=== PATIENT | female | born 1985 | race Caucasian/White ===

== ENCOUNTER 2019-10-24 21:51 | Emergency (ER) | payer MEDICAID ==
[~2019-10-24] VITALS: Ht 167.6 cm; Wt 84.0 kg
--- NOTE | 2019-10-24 22:21 | NUR ---
hemant rn:Pt presents to ed c/o SA tonight. Cut wrist "to end it all.. Im kind of done with everything." States multiple sa attempts, including recent wrist cutting to Other, Left, wrist, and I ate 30 ambien and still woke up the next day. States being seen at [facility] for multiple psychiatric disorders and on medications at home. Roller doors down. Ua sample collected. Sitter in hallway. All belongings in 1 bag and put in locker. Main rn given report.
[2019-10-24] MEDS ORDERED: DIPH,PERTUSS(ACELL),TET VAC/PF 0.5 ML IM-VACC ONE ×2 (22:30→22:31)
[2019-10-24] MEDS ORDERED: LIDOCAINE 1%-EPI 1:100K, 20ML INFIL ONE (22:30)
[2019-10-24] MEDS ORDERED: LIDOCAINE 1%-EPI 1:100K, 20ML ONE (22:31)
[2019-10-24 22:37] LABS: HCG UR SG 1.006 (1.003-1.030)
[2019-10-24 22:38] LABS: BASOPHILS # (AUTO) 0.03 x10^3/uL (0-0.1); BASOPHILS % (AUTO) 0 % (0-1); EOSINOPHILS # (AUTO) 0.12 x10^3/uL (0-0.4); EOSINOPHILS % (AUTO) 1 % (1-7); LYMPHOCYTES % (AUTO) 53 % (22-44); MD NO; MEAN CORPUSCULAR HEMOGLOBIN 32.5 pg (27.0-34.8); MEAN CORPUSCULAR HGB CONC 33.7 g/dL (32.4-35.8); MEAN CORPUSCULAR VOLUME 96.3 fL (80-100); MEAN PLATELET VOLUME 7.3 fL (7.4-10.4); MONOCYTES # (AUTO) 0.68 x10^3/uL (0.2-0.8); MONOCYTES % (AUTO) 8 % (2-9); NEUTROPHILS # (AUTO) 3.32 x10^3/uL (1.8-6.8); NEUTROPHILS % (AUTO) 38 % (42-75); PLATELET COUNT 327 x10^3/uL (130-400)
[2019-10-24 22:50] LABS: AMPHETAMINE SCREEN, URINE Negative (Negative); BARBITURATE SCREEN, URINE Negative (Negative); BENZODIAZEPINE SCREEN, URINE Positive (Negative); CANNABINOID SCREEN, URINE Negative (Negative); COCAINE SCREEN, URINE Negative (Negative); METHADONE SCREEN, URINE Negative (Negative); OPIATE SCREEN, URINE Negative (Negative)
[2019-10-24 22:51] LABS: ALANINE AMINOTRANSFERASE 116 U/L (12-78); ALBUMIN 3.6 g/dL (3.4-5.0); ANION GAP 7 mmol/L (5-15); CALCIUM 7.8 mg/dL (8.5-10.1); CHLORIDE 115 mmol/L (98-107)
[2019-10-24 22:56] LABS: CREATININE 0.81 mg/dL (0.55-1.02)
[2019-10-24 22:57] LABS: ALKALINE PHOSPHATASE 67 U/L (45-117); BILIRUBIN,TOTAL 0.2 mg/dL (0.2-1.0); TOTAL PROTEIN 7.2 g/dL (6.4-8.2)
[2019-10-24 22:59] LABS: SALICYLATE LEVEL < 1.7 mg/dL (2.8-20.0)
--- NOTE | 2019-10-24 23:00 | NUR ---
LACERATION REPAIR IN PROCESS. FAMILY IN WAITING ROOM AWAITING VISITATION. PATIENT IN NO APPARENT DISTRESS AT THIS TIME.
--- NOTE | 2019-10-25 | NUR ---
patient resting in bed with family at bedside. She states her wrist is becoming painful. She is requesting pain medication.
[2019-10-25] MEDS ORDERED: ACETAMINOPHEN 500 MG TABLET ONE (00:40)
--- NOTE | 2019-10-25 00:51 | NUR ---
Patient is hyperventilating. Mom at bedside. patient placed on PaO2 monitor. VSS. Patient was reassured of plan of care.
--- NOTE | 2019-10-25 00:53 | NUR ---
patient's emetrgency contact: Richard Mercer (mother) Please call w updates.
[2019-10-25] MEDS ORDERED: LORazepam 1MG TABLET ONE (00:57)
[2019-10-25] MEDS ORDERED: LORazepam 1MG TABLET PO ONE (01:00)
[2019-10-25] MEDS ORDERED: LORazepam 2 MG/ML, 1ML IVPush ONE (01:00)
[2019-10-25] MEDS ORDERED: ACETAMINOPHEN 500 MG TABLET PO ONE (01:00)
--- NOTE | 2019-10-25 01:00 | NUR ---
PATIENT RESTING IN BED WITH FAMILY AT BEDSIDE. SHE IS CALM AND COOPERATIVE AT THIS TIME.
--- NOTE | 2019-10-25 02:03 | NUR ---
PATIENT RESTING IN BED, EYES CLOSED. SHE WAS CONCERNED THAT 2 OF HER SUTURES BROKE. MD AWARE. SITTER AT BEDSIDE. PATIENT IN NO ACUTE DISTRESS.
--- NOTE | 2019-10-25 03:00 | NUR ---
PATIENT RESTING IN BED, EYES CLOSED. SITTER AT BEDSIDE. PATIENT IN NO ACUTE DISTRESS.
--- NOTE | 2019-10-25 04:12 | NUR ---
PATIENT RESTING IN BED, EYES CLOSED. SITTER AT BEDSIDE. PATIENT IN NO ACUTE DISTRESS.
[2019-10-25] MEDS ORDERED: LIDOCAINE-MPF 1%, 5ML ONE (04:22)
--- NOTE | 2019-10-25 04:39 | NUR ---
Came in to assess patient, waiting for Psychiatrist to call back.
--- NOTE | 2019-10-25 05:00 | NUR ---
PATIENT ASLEEP YET ROUSABLE TO VOICE. SHE IS IN NO APPARENT DISTRESS. SITTER AT BEDSIDE.
--- NOTE | 2019-10-25 05:56 | NUR ---
TP RN: PT PACKED FAXED TO [facility], AND [facility]
--- NOTE | 2019-10-25 06:02 | NUR ---
PATIENT ASLEEP YET ROUSABLE TO VOICE. SHE IS IN NO APPARENT DISTRESS. SITTER AT BEDSIDE
--- NOTE | 2019-10-25 06:57 | NUR ---
GAVE REPORT TO [facility] FOR POTENTIAL TRANSFER.
[2019-10-25 07:26] VITALS: BP 107/68
--- NOTE | 2019-10-25 07:30 | NUR ---
[facility] CALLED FOR UPDATED VITALS ON PT. VITALS TAKEN AND REPORTED TO [facility]. STATED THEY WILL RELAY THEM TO THEIR DOC AND SEE IF DOC WILL ACCEPT PT. PT RESTING CALMLY IN BED AT THIS TIME. SITTER AT DOOR.
--- NOTE | 2019-10-25 08:45 | NUR ---
PT GIVEN MEAL TRAY. STATED HER LEFT WRIST HURTS. ERP AWARE, MEDS ORDERED. SITTER AT DOOR. PT MOTHER REQUESTING PT CALL HER TODAY. PT AWARE. PT INSTRUCTED ON PHONE USE.
[2019-10-25] MEDS ORDERED: IBUPROFEN 600 MG TABLET PO ONE (09:00)
[2019-10-25] MEDS ORDERED: IBUPROFEN 600 MG TABLET ONE (09:29)
--- NOTE | 2019-10-25 09:55 | NUR ---
pt medicated for pain in right wrist. pt resting in bed with eyes closed. no other stated needs at this time.
--- NOTE | 2019-10-25 10:27 | NUR ---
called [facility] as [facility] have an accepting doctor. Spoke with Sam who stated they received report on pt last night and did not need report from this RN at this time. Will continue to monitor.
== END 2019-10-25 10:54 ==
LOC: ED 10-25 01:08
DX: T14.91XA Suicide attempt, initial encounter (principal); S61.511A Laceration without foreign body of right wrist, initial encounter; F32.9 Major depressive disorder, single episode, unspecified; F41.9 Anxiety disorder, unspecified; X78.1XXA Intentional self-harm by knife, initial encounter; Y93.89 Activity, other specified; Y92.89 Other specified places as the place of occurrence of the external cause; Y99.8 Other external cause status
CPT/HCPCS: 12042; 36415; 80053; 80307; 81025; 84703; 85025; 90471; 90715; 99285

== ENCOUNTER 2020-01-05 23:43 | Emergency (ER) | payer MEDICAID ==
[~2020-01-05] VITALS: Ht 170.2 cm; Wt 93.1 kg
--- NOTE | 2020-01-05 23:45 | NUR ---
OVERHEAD LINE WORKER: PT PROVIDED ICE PACK AT THIS TIME.
--- NOTE | 2020-01-06 00:32 | NUR ---
ACCOUNTS ADJUSTABLE CLERK: PT. TO ROOM FROM LOBBY AT THIS TIME.
[2020-01-06] MEDS ORDERED: HYDROcodone/APAP 5/325 TABLET ONE (01:44)
--- NOTE | 2020-01-06 01:50 | NUR ---
SPLINT PLACED. PT MEDICATED FOR PAIN. VSS. PT VERBALIZED UNDERSTANDING OF DISCHARGE AND FOLLOW UP INSTRUCTIONS. PT AMBULATED OUT OF ER WITH A STEADY GAIT.
[2020-01-06 01:51] VITALS: BP 133/82
[2020-01-06] MEDS ORDERED: HYDROcodone/APAP 5/325 TABLET PO ONE (02:00)
== END 2020-01-06 01:54 | disposition home or self-care (01) ==
LOC: ED 01-06 00:38
DX: S62.306A Unspecified fracture of fifth metacarpal bone, right hand, initial encounter for closed fracture (principal); X58.XXXA Exposure to other specified factors, initial encounter; Y93.89 Activity, other specified; Y92.098 Other place in other non-institutional residence as the place of occurrence of the external cause; Y99.8 Other external cause status
CPT/HCPCS: 29125; 99284

== ENCOUNTER 2020-02-07 16:37 | Emergency (ER) | payer MEDICAID ==
[~2020-02-07] VITALS: Ht 167.6 cm; Wt 95.1 kg
[2020-02-07 17:05] VITALS: BP 120/60
[2020-02-07] MEDS ORDERED: LIDOCAINE-MPF 1%, 5ML INFIL ONE (17:30)
[2020-02-07] MEDS ORDERED: LIDOCAINE-MPF 1%, 5ML ONE (19:39)
--- NOTE | 2020-02-07 22:01 | NUR ---
DISCHARGE INSTRUCTIONS EXPLAINED TO PT. PT VERBALIZED UNDERSTANDING. RX GIVEN TO PT. LEFT FINGERS CLEANED, AND BANDAGED. PT AMBULATED TO DISCHARGE DESK WITHOUT INCIDENT
== END 2020-02-07 22:04 | disposition home or self-care (01) ==
LOC: ED 21:44
DX: S61.215A Laceration without foreign body of left ring finger without damage to nail, initial encounter (principal); S61.217A Laceration without foreign body of left little finger without damage to nail, initial encounter; W26.9XXA Contact with unspecified sharp object(s), initial encounter; Y93.89 Activity, other specified; Y92.009 Unspecified place in unspecified non-institutional (private) residence as the place of occurrence of the external cause; Y99.8 Other external cause status
CPT/HCPCS: 12041; 99285

== ENCOUNTER 2020-06-26 07:08 | Day surgery (SDC) | payer MEDICAID ==
[~2020-06-26] VITALS: Ht 167.6 cm; Wt 91.4 kg
[~2020-06-26 07:08] MED LIST: BUPIVACAINE/PF 0.25% ONE; EPINEPHRINE 1 MG/ML, 1ML ONE
[2020-06-26] MEDS ORDERED: CHLORHEXIDINE 15 ML UDC ONE (07:28)
[2020-06-26] MEDS ORDERED: CHLORHEXIDINE 15 ML UDC PO ONE (07:30)
[2020-06-26] MEDS ORDERED: LACTATED RINGERS 1,000 ML IV SCH (07:30)
[2020-06-26 08:04] LABS: HCG UR SG 1.024 (1.003-1.030)
[2020-06-26 08:09] VITALS: BP 111/75
[2020-06-26] MEDS ORDERED: PARO20TA4 PO (08:37)
[2020-06-26] MEDS ORDERED: MIDAZOLAM 1 MG/ML, 2ML ONE (09:08)
[2020-06-26] MEDS ORDERED: FENTANYL PF 100 MCG/2ML ONE ×3 (09:08→11:20)
[2020-06-26] MEDS ORDERED: DEXAMETHASONE 4 MG/ML, 1ML ONE ×2 (09:09)
[2020-06-26] MEDS ORDERED: PROPOFOL 10 MG/ML, 20ML ONE (09:10)
[2020-06-26] MEDS ORDERED: ONDANSETRON 2MG/ML, 2ML ONE (09:10)
[2020-06-26] MEDS ORDERED: CEFAZOLIN 1,000 MG ONE ×2 (09:10)
[2020-06-26] MEDS ORDERED: ROCURONIUM 10MG/ML,5ML ONE (09:10)
[2020-06-26] MEDS ORDERED: KETOROLAC 30 MG/1 ML ONE (09:13)
[2020-06-26] MEDS ORDERED: DIAZEPAM 5 MG/ML, 2ML IVPush PRN (09:30)
[2020-06-26] MEDS ORDERED: ACETAMINOPHEN 325 MG TABLET PO PRN (09:30)
[2020-06-26] MEDS ORDERED: PROMETHAZINE 25 MG/ML, 1ML IVPush PRN (09:30)
[2020-06-26] MEDS ORDERED: MEPERIDINE/PF 25MG/0.5ML IVPush PRN (09:30)
[2020-06-26] MEDS ORDERED: DIPHENHYDRAMINE 50 MG/ML, 1ML IVPush PRN (09:30)
[2020-06-26] MEDS ORDERED: ONDANSETRON 2MG/ML, 2ML IVPush PRN (09:30)
[2020-06-26] MEDS ORDERED: OXYcodone 5 MG/5 ML ORAL.SOL UDC PO PRN (09:30)
[2020-06-26] MEDS ORDERED: NEOSTIGMINE 1 MG/ML, 10ML ONE (10:14)
[2020-06-26] MEDS ORDERED: GLYCOPYRROLATE 0.2MG/1ML, 5ML ONE (10:14)
[2020-06-26] MEDS: FENTANYL PF 100 MCG/2ML IV PRN ×2 (11:22→11:27)
[2020-06-26] MEDS ORDERED: OXYcodone 5 MG/5 ML ORAL.SOL UDC ONE (11:25)
[2020-06-26] MEDS ORDERED: HYDROmorphone 1 MG/ML, 1ML INJ ONE ×2 (11:25→12:05)
[2020-06-26] MEDS ORDERED: BUPIVACAINE/PF 0.25% ONE (11:34)
[2020-06-26] MEDS ORDERED: EPINEPHRINE 1 MG/ML, 1ML ONE (11:34)
[2020-06-26] MEDS: HYDROmorphone 1 MG/ML, 1ML INJ IVPush PRN ×3 (11:34→12:05)
[2020-06-26] MEDS ORDERED: ACETAMINOPHEN 325 MG TABLET ONE (11:49)
== END 2020-06-26 17:05 | disposition home or self-care (01) ==
LOC: OUT 07:08
PROVIDERS: ATTEND Obstetrics & Gynecology Female Pelvic Medicine and Reconstructive Surgery
DX: N92.1 Excessive and frequent menstruation with irregular cycle (principal); N94.6 Dysmenorrhea, unspecified; N94.10 Unspecified dyspareunia; N81.11 Cystocele, midline; N81.5 Vaginal enterocele; N81.6 Rectocele; N81.89 Other female genital prolapse; N80.2 Endometriosis of fallopian tube; N73.6 Female pelvic peritoneal adhesions (postinfective); Z20.822 Contact with and (suspected) exposure to COVID-19; Z88.5 Allergy status to narcotic agent; Z98.890 Other specified postprocedural states
CPT/HCPCS: 57265; 57282; 58552; 81025; 87635; 88307; J0171; J0690; J1100; J1170; J1885; J2250; J2405; J2704; J2710; J3010; J7120